=== PATIENT | male | born 1940 | race Caucasian/White ===

== ENCOUNTER → 2017-01-26 | Outpatient (CLI) | payer MEDICARE, BC ==
[~2017-01-26] MED LIST: ZOLPIDEM 5 MG TABLET. PO ONE
--- NOTE | 2017-01-31 22:33 | SLEEP ---
DATE OF STUDY: 01/26/2017 ATTENDING PHYSICIAN: Dr. Mata The patient is 76 years old, who weighs 203 pounds with a BMI of 35. The patient's Jarratt score was 1. Sleep study was performed at [facility]. During the night study, the patient spent 422 minutes in bed and slept for 297 minutes with a sleep efficiency of 70%. Sleep latency was prolonged at 72 minutes with a REM latency of 262 minutes. Overall, sleep architecture showed increased stage I sleep, normal stage II sleep, increased slow wave and reduced REM sleep. During the night study, the patient had 9 obstructive apneas, 1 mixed, and no central apneas. There were 22 hypopneas. The patient's apnea-hypopnea index was 7 per hour with a supine index of 2 per hour and a REM index of 57 per hour. Review of nocturnal oximetry study revealed a mean oxygen saturation of 96% with the lowest of 85%. A 7% of time oxygen saturation remained between 80% and 89%. EKG monitoring revealed an average heart rate of 77 beats per minute, no sustained arrhythmias were observed. PLMS were seen at index of 91 per hour and 6 per hour caused EEG arousals. Due to low AHI, the patient did not meet the split night criteria for CPAP initiation. IMPRESSION: 1. 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 This was predominantly REM sleep related sleep apnea. 2. Nocturnal hypoxia secondary to obstructive sleep apnea. 3. Severe PLMS. RECOMMENDATIONS: 1. The patient did not meet the split night criteria for CPAP initiation. The patient has mild sleep apnea. I would recommend weight loss as the initial form of treatment. 2. If patient remains clinically symptomatic despite weight loss, then I would recommend treating patient's sleep apnea with either oral appliance or trial of CPAP titration. 3. Avoid ADULT MANAGER depressants. 4. Caution regarding driving until symptoms of sleep apnea resolve with the above recommendations. 5. The patient should be further evaluated for symptoms of restless legs during the day and if present, it can be treated with dopaminergic agonist agents. JOIE SINGH MD DR: MINERVA/aarti JOB#: [id number] / [id number] BRENT HOLLOWAY MD
== END | disposition home or self-care (01) ==
LOC: SLPLAB 18:34
PROVIDERS: ATTEND Family Medicine
DX: G47.33 Obstructive sleep apnea (adult) (pediatric) (principal)
CPT/HCPCS: 95810